=== PATIENT | male | born 1970 | race African-American/Black ===

== ENCOUNTER 2018-03-05 05:25 | Day surgery (SDC) | payer OTHER ==
[~2018-03-05] VITALS: Ht 185.4 cm; Wt 70.3 kg
--- NOTE | ~2018-03-05 | OP ---
PATIENT NAME: CHAD VINCENT MEDICAL RECORD: [id number] :72 LOCATION:[facility] ADMISSION DATE: SURGEON: NELLY HO MD DATE OF OPERATION: 03/05/2018 PREOPERATIVE DIAGNOSES: 1. End-stage renal disease. 2. Symptomatic pseudoaneurysms of the right upper extremity. POSTOPERATIVE DIAGNOSES: 1. End-stage renal disease. 2. Symptomatic pseudoaneurysms of the right upper extremity. 3. Numerous side branch tributaries. PROCEDURES: 1. Pseudoaneurysm resections times 2 of the right upper extremity. 2. Jump graft around the pseudoaneurysm resection site utilizing a 7-mm PTFE graft. 3. Ligation of side branches times 7. 4. Nonselective fistulogram through 6-[place] sheath under fluoroscopic guidance. 5. Placement of right internal jugular HemoSplit catheter (tunneled cuffed dual-lumen hemodialysis catheter under fluoroscopic guidance). 6. Immediate surgeon interpretation of the fluoroscopic images. SURGEON: Nelly Ho MD PYTHON PROGRAMMER: None. BLOOD LOSS: 150 cc. ANESTHESIA: General. DRAINS: Times 1, 19-[place] round Dev drain. The risks, possible complications and alternatives to procedure were explained to the patient. He elects to proceed. The discussion was specifically included, but was not limited to, bleeding requiring emergency reoperation, recurrence of the pseudoaneurysms, postoperative pain, postoperative bleeding, great vessel injury, hematoma. OPERATIVE COURSE: The patient was conveyed to the operating room electively on 03/05/2018. General anesthesia was induced by the anesthesia staff. The right upper extremity was sterilely prepped and draped. Utilizing micropuncture technique in an antegrade fashion, I accessed the arteriovenous fistula. A nonselective fistulogram was performed. This revealed 2 very large pseudoaneurysms with numerous side branches. Incisions were accomplished over the side branches and I ligated several side branches with small silk sutures. An incision was accomplished over the cephalic vein in the distal upper arm, also over the wrist fistula. I dissected down to the very large cephalic vein at the wrist fistula. It was ligated and a clamp was placed proximally on it. I then divided the cephalic vein between the tie and the clamp. OPERATIVE REPORT [id number] CHAD VINCENT In the upper arm, I ligated the cephalic vein distally. I then went about resecting the pseudoaneurysms. The tourniquet was inflated. The total tourniquet time was 24 minutes. I incised into the pseudoaneurysm. I excised portions of the pseudoaneurysm sac with the Zuniga scissors. I left the posterior aspect of the pseudoaneurysm sac as there were some side branches here, which were deep branches and were ligated with 3-0 Vicryls in a horizontal mattress fashion. I ligated the fistula conduit proximally and distally. I resected additional portions of the pseudoaneurysm sac. I then went about performing a jump graft. This was done lateral to the pseudoaneurysm resections. I tunneled a 7-mm PTFE graft. Over the cubital fossa, there were reinforced ramus. Distally in the arm, an end-to-end anastomosis was then accomplished from the cephalic vein to the 7-mm graft utilizing running 6-0 Prolene suture. I tunneled through one of the incisions, through which tributary ligations had been performed. I then tunneled to the most proximal incision. An end-to-side anastomosis was then fashioned from the PTFE graft to the cephalic vein utilizing running 6-0 Prolene suture. I then released control on the graft. There was an excellent thrill within the graft. At the pseudoaneurysm resection sites, meticulous hemostasis was achieved with electrocautery as well as Tamika. At no time was there any nervous injury during this operation. I then placed a 19-[place] fully fluted drain, which was a closed system drain at the base of the pseudoaneurysm resection sites. There was a skin bridge between the 2 resection sites. I then brought out the 19-[place] drain through a stab incision medially. The drain was sutured to the skin with 2-0 nylon. The skin incisions were closed with interrupted 3-0 Vicryls for the deep dermis as well as a running intracuticular 3-0 Vicryl for the skin, some 4-0 Vicryl Rapide horizontal mattress sutures were utilized as well. Attention was then turned to placement of a HemoSplit catheter. I felt that the HemoSplit catheter was going to be the safest thing at this point because the graft will not be able to be accessed for about 2 to 3 weeks. The right upper chest was sterilely prepped and draped. Under ultrasonographic guidance, I percutaneously accessed the right internal jugular vein. A guidewire passed easily. This was visualized under fluoroscopy. At no time was there a radiologist present for this procedure. The surgeon interpretation of fluoroscopic images is dictated within the body of this operative note. Under fluoroscopy, a guidewire could be seen coursing down the right side of the mediastinum. A skin incision was accomplished around the wire. A counterincision was accomplished in the right anterior superior chest. I tunneled a HemoSplit catheter from the chest incision to the neck incision. Over the wire, I dilated to a larger size. Dilator sheath was then advanced. The dilator and wire were removed. Through the peel-away sheath, the tips of the HemoSplit catheter were advanced and the Peel-Away sheath was then removed. OPERATIVE REPORT [id number] CHAD VINCENT I then pulled back on HemoSplit catheter to seat the cuff in the subcutaneous tissues. The neck incision was closed with a single horizontal mattress 3-0 Vicryl suture. The flange and HemoSplit catheter was sutured to the underlying skin with 2-0 nylons. Both lumens and HemoSplit catheter flushed easily and aspirated dark, nonpulsatile blood. I then topped off both lumens of the HemoSplit catheter with the appropriate amount of concentrated heparin. I packed some fibrillar up along the HemoSplit catheter exit site and tract. Sterile dressings were applied. The patient was then extubated and conveyed to post-anesthesia care unit where he was developing hematoma involving the right neck. The same bag has been applied. Pending a satisfactory chest x-ray, he can be dismissed back to the assisted. He likely does not need to go back to general population as he does have an indwelling drain. This needs to be emptied on an as needed basis. I will plan to remove the drain during my rounds at the assisted this weekend. I have written a prescription for hydrocodone. In the recovery room, the patient had a thrill as well as a bruit within the jump graft. TRANSINT:[id number] Voice Confirmation ID: [id number] DOCUMENT ID: [id number] NELLY HO MD at 1816 CC: [id number] DICTATION DATE: 03/05/18 1200 LIVING MANAGER: 03/05/18 1238 DEP SDC 03/05/18 [facility] [address] [facility] [place] [address]
[~2018-03-05 05:25] MED LIST: ASPIRIN 81 MG E81 MG PO; CALAN SR180 MG PO; DIPHENHIST25 MG PO; LASIX80 MG PO; METOPROLOL TAR100 MG PO; NEPHRO-VITE RX1 TAB PO; NORVASC10 MG PO; PERCOCET 10/3251 TA1 PO; PHOSLO667 MG; PHOSLO667 MG PO; PRILOSEC20 MG PO; PRINIVIL20 MG PO; RYBIX ODT50 MG; THERAGRAN-M ADV1 TA1 PO; ZYLOPRIM100 MG PO
[2018-03-05 06:22] VITALS: BP 137/81; Ht 185.4 cm; Wt 70.3 kg
[2018-03-05 07:37] LABS: ANION GAP 17.3 mmol/L (8-16); CALCIUM 9.1 mg/dL (8.5-10.1); CARBON DIOXIDE 28.2 mmol/L (21.0-32.0); CREATININE - SERUM 15.4 mg/dL (0.6-1.3); POTASSIUM - SERUM 4.5 mmol/L (3.5-5.1)
[2018-03-05 08:28] LABS: BASOPHILS 0.4 % (0-2); EOSINOPHILS 13.4 % (0-7); HEMOGLOBIN 11.6 g/dL (13.5-17.5); IMMATURE GRANULOCYTES 0.1 % (0-5); LYMPHOCYTES 32.2 % (15-50); MCH 29.1 pg (26.0-34.0); MCHC 32.2 g/dL (31.0-37.0); MCV 90.5 fL (80.0-100.0); NEUTROPHILS 45.9 % (40-80); RBC 3.98 10x6/uL (4.20-6.10); WBC 9.2 10x3/uL (4.8-10.8)
[2018-03-05 08:41] LABS: PLATELET COUNT 88 10x3/uL (130-400)
[2018-03-05 09:09] LABS: PLATELET ESTIMATE DECREASED
== END 2018-03-05 15:30 ==
LOC: D.OPS 05:25 → D.SDCHOLD 05:26 → D.OPS 08:00
PROVIDERS: Anesthesiology; Surgery
DX: I77.0 Arteriovenous fistula, acquired (principal); I12.0 Hypertensive chronic kidney disease with stage 5 chronic kidney disease or end stage renal disease; N18.6 End stage renal disease; Z99.2 Dependence on renal dialysis; K21.9 Gastro-esophageal reflux disease without esophagitis; Z01.812 Encounter for preprocedural laboratory examination